=== PATIENT | female | born 1960 | race African-American/Black ===

== ENCOUNTER 2020-10-28 17:49 | Inpatient (IN) | payer BC ==
[~2020-10-28] VITALS: Ht 162.6 cm; Wt 92.1 kg
[2020-10-28 18:20] VITALS: BP 139/69
[2020-10-28] MEDS ORDERED: METFORMIN HCL500 M3 PO (18:50)
[2020-10-28] MEDS ORDERED: ZESTRIL30 MG PO (18:51)
[2020-10-28] MEDS ORDERED: ATORVASTATIN CA20 MG PO (18:51)
[2020-10-28 20:25] LABS: BASOPHILS 0.2 % (0.0-2.0); EOSINOPHILS 0.3 % (0.0-3.0); HEMATOCRIT 34.3 % (37.0-47.0); HEMOGLOBIN 11.1 gm/dL (12.0-15.0); LYMPHOCYTES 9.4 % (24.0-44.0); MCH 22.9 pg (26.0-34.0); MCHC 32.4 g/dL (28.0-37.0); MCV 70.9 fL (80.0-100.0); MONOCYTES 12.1 % (1.0-8.0); PLATELET COUNT 216 thou/uL (150-400); RBC 4.83 mil/uL (4.20-5.00); RDW 14.1 % (10.5-14.5); WBC 12.9 thou/uL (4.0-11.0)
[2020-10-28 20:28] VITALS: BP 136/86
[2020-10-28 20:41] LABS: CALCIUM 9.2 mg/dL (8.5-10.1); POTASSIUM 3.8 mmol/L (3.5-5.1)
[2020-10-28 20:45] VITALS: BP 153/83
[2020-10-28 20:46] LABS: ALBUMIN 2.9 g/dL (3.4-5.0); TOTAL BILIRUBIN 0.6 mg/dL (0.2-1.0); TOTAL PROTEIN 8.4 g/dL (6.4-8.2)
[2020-10-28 20:49] LABS: HYPOCHROMASIA 3+; MICROCYTES 3+
[2020-10-28 21:25] LABS: CHOLESTEROL 152 mg/dL (<200); HDL CHOLESTEROL 57 mg/dL (>40); LDL CHOLESTEROL 76 mg/dL (<100); TC:HDL 2.7 Ratio (Not establshd); TRIGLYCERIDE 97 mg/dL (<150); VLDL 19 mg/dL (<40)
--- NOTE | 2020-10-29 02:40 | NUR ---
PT ADMITTED TO UNIT APPROX 2034 WITH SON AND DAUGHTER AT BEDSIDE. ADMISSION PACKET PROVIDED, CONSENTS OBTAINED, BELONGINGS LOGGED. ONCALL PROVIDER MET WITH PT UPON ARRIVAL TO FLOOR TO DISCUSS PLAN OF CARE. PT AOX4. PT DENIES PAIN AND SOB WHILE ON ROOM AIR. PT TOLERATING PO INTAKE OF FLUIDS AND HEART HEALTHY AND CARB CONTROLLED DIET WITHOUT ISSUE. PT WITHOUT NAUSEA OR EMESIS. PT RESTING IN BED THROUGHOUT SHIFT, FREQUENT REPOSITIONING ENCOURAGED, PT NOTED TO SHIFT INDEPENDENTLY WHILE IN BED. SENSATION INTACT, CAPILLARY REFILL LESS THAN 3SEC IN ALL EXTREMITIES. PT ENCOURAGED TO NOTIFY STAFF FOR ALL NEEDS, CALL LIGHT WITHIN REACH, BED ALARM ON, BED LOCKED IN LOWEST POSITION, FREQUENT MONITORING WILL CONTINUE.
[2020-10-29 05:19] LABS: HEMATOCRIT 36.1 % (37.0-47.0); HEMOGLOBIN 11.7 gm/dL (12.0-15.0); MCH 23.6 pg (26.0-34.0); MCHC 32.5 g/dL (28.0-37.0); MCV 72.7 fL (80.0-100.0); RBC 4.98 mil/uL (4.20-5.00); RDW 14.2 % (10.5-14.5); WBC 14.7 thou/uL (4.0-11.0)
[2020-10-29 05:26] LABS: CALCIUM 8.9 mg/dL (8.5-10.1); CREATININE 0.8 mg/dL (0.6-1.0); POTASSIUM 4.2 mmol/L (3.5-5.1)
[2020-10-29 08:04] VITALS: BP 140/63
--- NOTE | 2020-10-29 11:19 | NUR ---
Received awake on bed. Due medications given as prescribed, able to swallow meds w/o difficulty. On room air. Vital signs stable. On MS, not on telemetry; no complains and signs of chest pain, crushing sensation and heaviness. Assisted in ADLs. On carb controlled diet- tolerating well; no nausea, no vomiting and no abdominal pain noted. On blood sugar monitoring, taken and recorded accordingly. Continent of bowel and bladder, able to go to the toilet independently; assistance offered as well. With NS at 125cc/hr, infusing well at L FA. With hx of mastectomy; limb alert on R arm. With consult to neurology; a/w rounds. Complained of pain, due PO PRN pain meds given as prescribed. With relative at bedside, updated. Pt seen and examined by Dr Calvin- a/w neuro's rounds; possible discharged. To continue monitoring patient.
--- NOTE | 2020-10-29 14:00 | NUR ---
PT ADMITTED RELATED TO HEADACHE, TRIEGMINAL NEURALGIA. CM REVIEWED CHART AND SPOKE WITH CARE TEAM. CM MET WITH PT AT BEDSIDE THIS DAY. PT APPEARED TO BE A&O X 4. CM ROLE INTRODUCED. PT INDICATED SHE LIVES IN A HOUSE WITH HER SPOUSE WITH 6 STEPS TO ENTER AND 14 STEPS TOTAL INSIDE. PT INDICATED SHE HAD BEEN INDEPDENENT WITH GAIT AND ADLS CASE MANAGEMENT ASSISTANT. PT INDICATED SHE PLANS TO RETURN HOME ONCE MEDICALLY STABLE. PT MAY HAVE MRI OF BRAIN. NEURO CONSULTED. CM FOLLOWING SHOULD ANY DC NEEDS ARISE.
[2020-10-29 15:17] VITALS: BP 155/74
[2020-10-29 15:25] LABS: URINE BILIRUBIN NEGATIVE (Negative); URINE BLOOD 2+ (Negative); URINE CLARITY CLEAR; URINE COLOR YELLOW; URINE GLUCOSE-RANDOM* NEGATIVE (Negative); URINE KETONES NEGATIVE (Negative); URINE NITRITE-REFLEX NEGATIVE (Negative); URINE PROTEIN (DIPSTICK) NEGATIVE (Negative); URINE UROBILINOGEN >= 8.0 E.U./dl (0.2-1.0)
[2020-10-29 15:27] LABS: URINE LEUKOCYTES-REFLEX 1+ (Negative)
[2020-10-29 15:33] LABS: CASTS None Seen /LPF (None Seen); CRYSTALS None Seen /LPF (None Seen); SQUAMOUS >10 Many /LPF (0-3); URINE RBC 3-10 Few /HPF (NONE SEEN); URINE WBC-REFLEX 6-15 Few /HPF (0-5)
[2020-10-29 19:33] VITALS: BP 159/86
[2020-10-30 01:06] LABS: GLYCOHEMOGLOBIN (HGB A1C) 7.1 % (4.8-5.6)
--- NOTE | 2020-10-30 05:57 | NUR ---
RECEIVED CARE OF THIS PATIENT AT 1900. PATIENT ALERT AND ORIENTED X4. UP AD CHONG.DENIES PAIN. IS SCHEDULED FOR A MRI THIS AM. ACCUCHECK WAS 203, REFUSED SS INSULIN. HOSPITALIST AWARE. SLEPT MOST OF NIGHT.
[2020-10-30 08:08] VITALS: BP 153/85
--- NOTE | 2020-10-30 10:31 | NUR ---
ASSUMED PT CARE THIS AM. PT IS ALERT & ORIENTED X4. PT HAS IV SITE ON L FA AND HAS R LIMB ALERT. PT IS UP AD CHONG. PT TOLERATED DIET AND MEDICATION THIS AM. PT NO C/O OF PAIN, NAUSEA AND VOMITING. PT HAD AN MRI BRAIN WITHOUT CONTRAST THIS AM. PT IS ACCUCHECK ACHS. PT ON THE CHAIR. WILL CONTINUE TO MONITOR PT. FOLLOW POC.
--- NOTE | 2020-10-30 15:40 | NUR ---
PT HAD MRI OF HEAD THIS DAY. PT TO HAVE CT WITH CONTRAST TOMORROW. CM NOTIFIED UR NURSE. CM FOLLOWING REGARDING DC PLANNING.
[2020-10-30 16:19] VITALS: BP 184/100
[2020-10-30 20:37] VITALS: BP 170/68
[2020-10-30 21:30] VITALS: BP 173/62
--- NOTE | 2020-10-31 01:53 | NUR ---
PT IS A/O X4 AND IS UP INDEPENDENTLY IN HER ROOM. ROOM AIR. MEDSURG NO TELE. VOIDS PER TOILET. HAS HAD ONE BM THIS SHIFT DOCUMENTED. DENIES C/O PAIN OR DISCOMFORT. MEDICATIONS GIVEN PER MAR. PT IS PROGRESSING TOWARDS PLAN OF CARE DC GOALS. CALL LIGHT IS WITHIN REACH. CALLS OUT APPROPRIATELY. WILL CONTINUE TO MONITOR.
[2020-10-31 09:14] VITALS: BP 179/71
[2020-10-31] MEDS ORDERED: TOPAMAX 25 MG T25 M1 PO (14:22)
[2020-10-31] MEDS ORDERED: AMITRIPTYLINE H50 M2 PO (14:22)
[2020-10-31] MEDS ORDERED: CEPHALEXIN500 MG PO (14:23)
[2020-10-31 14:35] VITALS: BP 179/73
--- NOTE | 2020-10-31 14:36 | NUR ---
CARE TEAM INDICATED THAT PT IS MEDICALLY STABLE TO DISCHARGE HOME THIS DAY. PT IS TO DC HOME TO SELF CARE. NO OTHER CM INTERVENTION INDICATED. CASE CLOSED.
[2020-10-31] MEDS ORDERED: PREDNISONE 10 M10 MG PO (14:47)
--- NOTE | 2020-10-31 16:17 | NUR ---
PATIENT IV DCD BY VERONICA ANGULO, PATIENT CONTINUES TO HAVE EDEMATOUS LEFT ARM DUE TO IV INFILATRATE ON 10/31/20. PATIENT TO FOLLLOW UP WITH PCP IN 2 WKS, AND RHEMATOLOGY WHEN CAN GET IN. PATIENT INSTRUCTED ON NEW MEDICATIONS, AND SENT WITH SCRIPT FOR PREDNISONE. PATIENT DENIED PAIN AT DISCHARGE. PATIENT VERBALIZED UNDERSTANDING OF DISCHARGE
== END 2020-10-31 16:16 | disposition home or self-care (01) | DRG 103 ==
LOC: ER 17:49 → 4W 20:12 → EROBS 20:12 → 4W 20:12
PROVIDERS: Emergency Medicine; Hospitalist; ADMIT Internal Medicine; ATTEND Internal Medicine
DX: G43.909 Migraine, unspecified, not intractable, without status migrainosus (principal); N39.0 Urinary tract infection, site not specified; G50.0 Trigeminal neuralgia; I10 Essential (primary) hypertension; D72.829 Elevated white blood cell count, unspecified; E78.5 Hyperlipidemia, unspecified; I77.6 Arteritis, unspecified; E11.9 Type 2 diabetes mellitus without complications; Z79.84 Long term (current) use of oral hypoglycemic drugs; Z79.899 Other long term (current) drug therapy; Z85.3 Personal history of malignant neoplasm of breast; Z90.10 Acquired absence of unspecified breast and nipple
CPT/HCPCS: 10040